=== PATIENT | female | born 1990 | race Caucasian/White ===

== ENCOUNTER → 2024-11-14 | Outpatient (REF) | payer OTHER | LOC: MRI 08:35 | PROVIDERS: ATTEND Chiropractor | DX: M25.552 Pain in left hip (principal); M54.50 Low back pain, unspecified; M79.671 Pain in right foot | CPT/HCPCS: 72148; 81025 ==

== ENCOUNTER → 2025-02-13 | Outpatient (REF) | payer OTHER | LOC: MRI 12:42 | PROVIDERS: ATTEND Orthopaedic Surgery | DX: M25.552 Pain in left hip (principal) ==